=== PATIENT | male | born 1940 | race Caucasian/White ===

== ENCOUNTER → 2021-08-17 10:12 | Outpatient (CLI) | payer MEDICARE, BC, SELFPAY ==
[2021-08-17 12:31] LABS: INR 3.6 (0.9-1.3)
[2021-08-17 12:34] LABS: PTT Partial Thromboplastin Tim 47 SECONDS (26.4-36.2)
== END ==
PROVIDERS: PCP Internal Medicine; Referring Provider Internal Medicine; Visit Provider Internal Medicine
DX: I48.91 Unspecified atrial fibrillation (principal); Z95.2 Presence of prosthetic heart valve
CPT/HCPCS: 36415; 85610; 85730

== ENCOUNTER → 2021-09-06 13:08 | Outpatient (CLI) | payer MEDICARE, BC, SELFPAY ==
[2021-09-06 14:30] LABS: INR 3.5 (0.9-1.3); Prothrombin Time 40.1 SECONDS (10.1-12.7)
[2021-09-06 14:33] LABS: PTT Partial Thromboplastin Tim 45 SECONDS (26.4-36.2)
== END ==
PROVIDERS: PCP Internal Medicine; Referring Provider Internal Medicine; Visit Provider Internal Medicine
DX: Z95.2 Presence of prosthetic heart valve (principal); I48.91 Unspecified atrial fibrillation
CPT/HCPCS: 36415; 85610; 85730